=== PATIENT | male | born 1975 | race Caucasian/White ===

== ENCOUNTER 2019-07-10 21:39 | Emergency (ER) | payer SELFPAY ==
[~2019-07-10] VITALS: Ht 182.9 cm; Wt 70.5 kg
[2019-07-10 21:44] VITALS: TEMP 97.9
[2019-07-10] MEDS ORDERED: NORCO 325 MG-51 TAB PO (22:56)
[2019-07-10 23:24] VITALS: BP 127/88; PULSE 96
== END 2019-07-10 23:20 | disposition home or self-care (01) ==
LOC: COL.ER 21:39
DX: S42.002A Fracture of unspecified part of left clavicle, initial encounter for closed fracture (principal); S00.93XA Contusion of unspecified part of head, initial encounter; S30.1XXA Contusion of abdominal wall, initial encounter; R40.2412 Glasgow coma scale score 13-15, at arrival to emergency department; V19.9XXA Pedal cyclist (driver) (passenger) injured in unspecified traffic accident, initial encounter